=== PATIENT | female | born 1950 | race Caucasian/White ===

== ENCOUNTER 2016-04-20 15:45 | Outpatient (CLI) | payer MEDICARE | END 2016-04-20 15:46 | disposition home or self-care (01) | LOC: HPCALD 15:45 | PROVIDERS: ATTEND Family Medicine | DX: N39.0 Urinary tract infection, site not specified (principal) | CPT/HCPCS: 87086 ==

== ENCOUNTER 2016-11-23 16:38 | Outpatient (CLI) | payer MEDICARE ==
[2016-11-23 16:58] LABS: #Basophils 0.1 thou/uL (0.0-0.2); #Eosinphils 0.2 thou/uL (0.0-0.7); #Lymphocytes 3.5 thou/uL (1.20-3.40); #Monocytes 0.8 thou/uL (0.11-0.59); #Neutrophils 8.3 thou/uL (1.40-6.50); %Basophils 0.5 % (0.0-1.0); %Eosinophils 1.3 % (0.0-10.0); %Lymphocytes 27.5 % (21.0-51.0); %Monocytes 6.1 % (0.0-10.0); %Neutrophils 64.6 % (42.0-75.0); Hemoglobin 15.8 g/dL (12.0-16.0); Mean Corpuscular HGB CONC 32.6 g/dL (32.0-36.0); Mean Corpuscular Hemoglobin 31.1 pg (27.0-31.0); Mean Corpuscular Volume 95.2 fl (81.0-99.0); Mean Platelet Volume 7.7 fL (7.4-10.4); Platelet Count 317 thou/uL (130-400); RBC Distribution Width 13.1 % (11.5-14.5); Red Blood Cell (RBC) Count 5.07 mill/uL (4.20-5.40); White Blood Cell (WBC) Count 12.8 thou/uL (4.8-10.8)
[2016-11-23 17:06] LABS: Bacteria/HPF 4+ HPF (None Seen); RBC/HPF 0-3 HPF (0-3); Squamous Epithelial 0-3 HPF (0-3); WBC/HPF 0-3 HPF (0-3)
[2016-11-23 17:15] LABS: ALT (SGPT) 14 U/L (8-55); AST (SGOT) 14 U/L (5-34); Albumin 4.5 g/dL (3.4-4.8); Alkaline Phosphatase 131 U/L (40-150); Anion Gap 16 mmol/L (10-20); BUN (Urea Nitrogen) 13 mg/dL (9.8-20.1); Bilirubin, Total 0.6 mg/dL (0.2-1.2); Calc. Creatinine Clearance 0 mL/min (70-130); Calcium 10.5 mg/dL (7.8-10.44); Carbon Dioxide 28 mmol/L (23-31); Chloride 101 mmol/L (98-107); Estimated GFR-MDRD 59; Globulin 3.2 g/dL (2.4-3.5); Glucose 94 mg/dL (80-115); Potassium 3.9 mmol/L (3.5-5.1); Protein, Total 7.7 g/dL (6.0-8.3); Sodium 141 mmol/L (136-145)
== END 2016-11-23 16:39 | disposition home or self-care (01) ==
LOC: HPCALD 16:38
PROVIDERS: ATTEND Family Medicine
DX: R30.0 Dysuria (principal); I10 Essential (primary) hypertension
CPT/HCPCS: 36415; 80053; 81015; 84443; 85025; 87077; 87086; 87186

== ENCOUNTER 2016-12-17 22:30 | Emergency (ER) | payer MEDICARE ==
[2016-12-17] MEDS ORDERED: hydrOXYzine 25 MG TAB ONE (22:50)
[2016-12-17] MEDS ORDERED: predniSONE 20 MG TAB ONE (22:59)
== END 2016-12-17 23:02 | disposition home or self-care (01) ==
LOC: BURERS 22:30
DX: L25.9 Unspecified contact dermatitis, unspecified cause (principal); I10 Essential (primary) hypertension; F17.210 Nicotine dependence, cigarettes, uncomplicated; Z79.899 Other long term (current) drug therapy
CPT/HCPCS: 99282; J7506

== ENCOUNTER 2017-01-01 10:50 | Inpatient (IN) | payer MEDICARE ==
[2017-01-01 11:32] LABS: Bilirubin Negative (Negative); Blood, Urine Moderate (Negative); Clarity Slightly Cloudy (Clear); Glucose, Urine (Dipstick) Negative (Negative); Leukocyte Moderate (Negative); Nitrite Negative (Negative); Protein, Urine (Dipstick) Negative (Neg-Trace); Specific Gravity, Urine 1.015 (1.005-1.030); Urobilinogen 0.2 mg/dL (0.2-1.0)
[2017-01-01 11:46] LABS: Bacteria/HPF 1+ HPF (None Seen); Crystals/HPF None Seen HPF (Negative); Hyaline Casts/LPF NONE SEEN LPF (0-3 Hyaline); Other Casts/LPF None Seen LPF (0-3 Hyaline); Oval Fat Bodies/HPF None Seen HPF (None Seen); Renal Epithelial None Seen HPF (0-3); Sperm/HPF None Seen HPF (None Seen); Transitional Epithelial NONE SEEN HPF (0-3); Trichomonas/HPF None Seen HPF (None Seen); Yeast-All Forms None Seen HPF (None Seen)
[2017-01-01] MEDS ORDERED: Ampicillin/Sulbactam 1.5 GM VIAL ONE (12:24)
[2017-01-01 12:26] LABS: #Basophils 0.1 thou/uL (0.0-0.2); #Eosinphils 0.2 thou/uL (0.0-0.7); #Lymphocytes 3.1 thou/uL (1.20-3.40); #Monocytes 0.8 thou/uL (0.11-0.59); #Neutrophils 10.1 thou/uL (1.40-6.50); %Basophils 0.7 % (0.0-1.0); %Eosinophils 1.3 % (0.0-10.0); %Lymphocytes 21.6 % (21.0-51.0); %Monocytes 5.4 % (0.0-10.0); Mean Corpuscular HGB CONC 32.3 g/dL (32.0-36.0); Mean Corpuscular Hemoglobin 31.3 pg (27.0-31.0); Mean Platelet Volume 7.5 fL (7.4-10.4); Platelet Count 327 thou/uL (130-400); RBC Distribution Width 12.3 % (11.5-14.5); White Blood Cell (WBC) Count 14.3 thou/uL (4.8-10.8)
[2017-01-01 12:44] LABS: ALT (SGPT) 16 U/L (8-55); AST (SGOT) 17 U/L (5-34); Albumin 4.5 g/dL (3.4-4.8); Alkaline Phosphatase 119 U/L (40-150); Anion Gap 17 mmol/L (10-20); BUN (Urea Nitrogen) 13 mg/dL (9.8-20.1); Bilirubin, Total 0.5 mg/dL (0.2-1.2); Calc. Creatinine Clearance 0 mL/min (70-130); Calcium 11.1 mg/dL (7.8-10.44); Carbon Dioxide 26 mmol/L (23-31); Chloride 100 mmol/L (98-107); Estimated GFR-MDRD 70; Globulin 3.8 g/dL (2.4-3.5); Glucose 100 mg/dL (80-115); Potassium 3.6 mmol/L (3.5-5.1); Protein, Total 8.3 g/dL (6.0-8.3); Sodium 139 mmol/L (136-145)
[2017-01-01 15:01] VITALS: BMI 27.8
[2017-01-01] MEDS ORDERED: Ondansetron ODT 4 MG TAB SL PRN (15:11)
[2017-01-01] MEDS ORDERED: HYDROcodone/Acetaminophen 5/325 mg Tablet PO PRN ×2 (15:11→15:15)
[2017-01-01] MEDS ORDERED: Acetaminophen 325 MG TAB PO PRN (15:11)
[2017-01-01] MEDS ORDERED: Ondansetron HCl/PF 4 MG/2 ML Vial IVP PRN (15:11)
[2017-01-01] MEDS ORDERED: Ondansetron ODT 4 MG TAB PO PRN (15:15)
[2017-01-01] MEDS ORDERED: diphenhydrAMINE 12.5 MG/5 ML UDCUP PO PRN ×2 (15:18→23:30)
[2017-01-01] MEDS ORDERED: predniSONE 20 MG TAB PO SCH (15:30)
[2017-01-01] MEDS ORDERED: diphenhydrAMINE 12.5 MG/5 ML UDCUP PO SCH (15:30)
[2017-01-01] MEDS ORDERED: FLU VACC TS2017-18 (>65YR) 0.5 ML SYRINGE IM ONE (16:15)
[2017-01-01] MEDS ORDERED: diphenhydrAMINE 12.5 MG/5 ML UDCUP ONE ×2 (16:51→16:54)
[2017-01-01] MEDS: Ampicillin/Sulbactam 3 GM in Sodium Chloride 0.9% 100 ML IVPB SCH (16:57)
--- NOTE | 2017-01-01 19:54 | HP ---
DATE OF ADMISSION: 01/01/2017 CHIEF COMPLAINT: Pyelonephritis. HISTORY OF PRESENT ILLNESS: This is a 66-year-old female who initially had flank pain approximately 5 days ago for which she was seen at [facility] Emergency Department. She was concerned this may be kidney stone which she has had previously and her urologist, Dr. Santiago Singh, works with [facility]; accompanying symptoms included fever, chills, nausea, vomiting. At [facility], a CT scan effectively ruled out kidney stones; however, the patient was noted to have urinary tract infection. Cultures were obtained and she was discharged with a prescription for Keflex. The patient was called on Monday, a couple days ago to change the antibiotics to Macrobid as the culture from [facility] grew E. coli with an abundance of resistance to antibiotics; however, did show that Macrobid was appropriate. However, after the patient took 2 doses of the Macrobid, she began to have hives around her face and neck yesterday. The patient recalled receiving a prescription for Macrobid approximately a month ago for which a similar reaction took place; however, after having taken the Macrobid nearly in full. She reports to have taken Macrobid a couple of times in the past without a similar reaction. Regardless she presented to [facility] secondary to these findings and having been advised that if she did not tolerate the prescribed antibiotics of Macrobid and/or did not improve symptomatically that she will require IV antibiotic treatment. In the emergency department here, urinalysis was consistent with continued urinary tract infection and the patient has a white blood cell count of 14.3. Thus, it has been decided to admit the patient, her IV antibiotic therapy, Unasyn, was started based on her urine culture from the [facility] facility. Prior to initiating this antibiotic, a new urine culture was obtained. PAST MEDICAL HISTORY: Hypertension, kidney stones, and arthritis. PAST SURGICAL HISTORY: Kidney stones removed in 2009, cataract surgery, partial colectomy for diverticulitis in 1995, right partial lobectomy for lung cancer in 1996, total splenectomy, and ruptured spleen in 1996. SOCIAL HISTORY: The patient is a smoker. ALLERGIES: SULFA, CEFDINIR, and we presumed MACROBID at this point. FAMILY HISTORY: Noncontributory. CURRENT MEDICATIONS: Include cholecalciferol 1000 units p.o. daily, lisinopril 40 mg p.o. daily, amlodipine 5 mg p.o. daily, hydrochlorothiazide 25 mg p.o. daily, allopurinol 300 mg p.o. daily. REVIEW OF SYSTEMS: GENERAL: The patient denies fever. EAR, NOSE, AND THROAT: Denies sore throat, nasal drainage or congestion. CARDIOVASCULAR: Denies chest pain or palpitations. RESPIRATORY: Denies shortness of breath or cough. GASTROINTESTINAL: Denies abdominal pain, nausea, vomiting, diarrhea or constipation. GENITOURINARY: Reports dysuria. MUSCULOSKELETAL: Denies joint swelling. DERMATOLOGIC: Complains of rash. NEUROLOGIC: Denies headache. LABORATORY DATA: White blood cell count is 14.3 with a slight left shift. Chemistry is within normal limits other than a calcium level of 11.1. Urine shows moderate blood and leukocyte esterase with 1+ bacteria. PHYSICAL EXAMINATION: VITAL SIGNS: Temperature is 98.4, pulse is 83, respiratory rate is 16, oxygen is 95% on room air, and blood pressure is 160/74. GENERAL: The patient is well nourished in no acute distress. Alert and oriented. HEAD, EYES, EARS, NOSE, AND THROAT: Pupils are equal, round, and reactive to light. Extraocular muscles are intact bilaterally. Normocephalic and atraumatic. Moist mucous membranes within normal limits. NECK: Supple, with no lymphadenopathy. CARDIOVASCULAR: Regular rate and rhythm, normal S1, S2 with no murmurs, rubs or gallops. RESPIRATORY: Clear to auscultation bilaterally without wheezes, rales or rhonchi. GASTROINTESTINAL: Soft, nontender to palpation with normal bowel sounds. EXTREMITIES: No clubbing, cyanosis or edema. SKIN: Urticarial rash around her face and neck. NEUROLOGICAL: Nonfocal. Cranial nerves II-XII are grossly intact. ASSESSMENT AND PLAN: 1. Pyelonephritis. We will proceed with Unasyn per the patient's urinary culture from [facility]. We will follow up the urine cultures obtained in the ER here. As stated, we will presume the patient to be allergic to Macrobid at this time. I have encouraged the patient to hydrate well. She does appear to be euvolemic per exam. 2. History of kidney stones. The patient is apparently on allopurinol for this and thus will be continued. She is followed by Dr. Santiago Singh, Urology at [facility]. 3. Hypertension. She is hemodynamically stable. We will continue her home blood pressure medications as usual. 4. Vitamin D deficiency. We will continue the patient's cholecalciferol. 5. Hives. We will add Benadryl and prednisone for the patient to help clear her rash. 5. Prophylaxis. We will provide famotidine and Lovenox. [facility]
[2017-01-01] MEDS: TROSPIUM 20 MG TABLET PO SCH (20:33)
[2017-01-01] MEDS: Lisinopril 20 MG TAB PO SCH (20:34)
[2017-01-01] MEDS: Famotidine 20 MG TAB PO SCH (20:34)
[2017-01-01] MEDS ORDERED: Enoxaparin Sodium 30 MG/0.3 ML SYRINGE SC SCH (21:00)
[2017-01-02] MEDS: Ampicillin/Sulbactam 3 GM in Sodium Chloride 0.9% 100 ML IVPB SCH ×5 (00:25→23:49)
[2017-01-02 06:07] LABS: Anion Gap 14 mmol/L (10-20); BUN (Urea Nitrogen) 14 mg/dL (9.8-20.1); Calc. Creatinine Clearance 91 mL/min (70-130); Calcium 10.1 mg/dL (7.8-10.44); Carbon Dioxide 23 mmol/L (23-31); Chloride 107 mmol/L (98-107); Estimated GFR-MDRD 83; Glucose 134 mg/dL (80-115); Potassium 4.2 mmol/L (3.5-5.1); Sodium 140 mmol/L (136-145)
[2017-01-02 06:16] LABS: Band 9 % (5-11); Hemoglobin 14.4 g/dL (12.0-16.0); Lymphocytes 17 % (21-51); MDiff Complete? YES; Mean Corpuscular HGB CONC 33.4 g/dL (32.0-36.0); Mean Corpuscular Hemoglobin 31.9 pg (27.0-31.0); Mean Corpuscular Volume 95.4 fl (81.0-99.0); Mean Platelet Volume 6.9 fL (7.4-10.4); Monocytes 4 % (0-10); Neutrophil 70 % (42-75); PLT Morphology Comment Appears Adequate; Platelet Count 299 thou/uL (130-400); RBC Distribution Width 12.3 % (11.5-14.5); RBC Morphology Normal; Red Blood Cell (RBC) Count 4.53 mill/uL (4.20-5.40); Small Platelets SLIGHT; White Blood Cell (WBC) Count 10.2 thou/uL (4.8-10.8)
[2017-01-02] MEDS ORDERED: Enoxaparin Sodium 30 MG/0.3 ML SYRINGE SC SCH (07:57)
[2017-01-02] MEDS: Amlodipine 5 MG TAB PO SCH (08:28)
[2017-01-02] MEDS: Famotidine 20 MG TAB PO SCH ×2 (08:30→21:40)
[2017-01-02] MEDS: Hydrochlorothiazide 25 MG TAB PO SCH (08:30)
[2017-01-02] MEDS: TROSPIUM 20 MG TABLET PO SCH ×2 (08:32→21:39)
[2017-01-02] MEDS ORDERED: Allopurinol 100 MG TAB PO SCH (09:00)
[2017-01-02] MEDS: Lisinopril 20 MG TAB PO SCH (21:39)
[2017-01-02] MEDS: Enoxaparin Sodium 40 MG/0.4 ML SYRINGE SC SCH (21:40)
[2017-01-02] MEDS: Allopurinol 100 MG TAB PO SCH (21:40)
[2017-01-03] MEDS ORDERED: diphenhydrAMINE 12.5 MG/5 ML UDCUP ONE ×2 (02:02→02:05)
[2017-01-03] MEDS: Ampicillin/Sulbactam 3 GM in Sodium Chloride 0.9% 100 ML IVPB SCH ×4 (05:56→23:59)
[2017-01-03 06:08] LABS: White Blood Cell (WBC) Count 13.1 thou/uL (4.8-10.8)
[2017-01-03 06:09] LABS: %Lymphocytes 38.8 % (21.0-51.0); %Neutrophils 52.5 % (42.0-75.0); Hemoglobin 14.2 g/dL (12.0-16.0); Manual Diff?? NO; Mean Corpuscular HGB CONC 32.3 g/dL (32.0-36.0); Mean Corpuscular Hemoglobin 31.1 pg (27.0-31.0); Mean Corpuscular Volume 96.3 fL (81.0-99.0); Mean Platelet Volume 7.9 fL (7.4-10.4); Platelet Count 269 thou/uL (130-400); RBC Distribution Width 12.2 % (11.5-14.5); Red Blood Cell (RBC) Count 4.55 mill/uL (4.20-5.40)
[2017-01-03 06:10] LABS: #Basophils 0.1 thou/uL (0.0-0.2); #Eosinphils 0.3 thou/uL (0.0-0.7); #Lymphocytes 5.1 thou/uL (1.20-3.40); #Monocytes 0.7 thou/uL (0.11-0.59); #Neutrophils 6.9 thou/uL (1.40-6.50); %Basophils 1.1 % (0.0-1.0); %Eosinophils 2.3 % (0.0-10.0); %Monocytes 5.3 % (0.0-10.0)
[2017-01-03 06:12] LABS: Carbon Dioxide 22 mmol/L (23-31); Chloride 106 mmol/L (98-107); Potassium 3.8 mmol/L (3.5-5.1); Sodium 140 mmol/L (136-145)
[2017-01-03 06:14] LABS: Anion Gap 16 mmol/L (10-20); BUN (Urea Nitrogen) 12 mg/dL (9.8-20.1); Calc. Creatinine Clearance 86 mL/min (70-130); Calcium 9.5 mg/dL (7.8-10.44); Estimated GFR-MDRD 78; Glucose 102 mg/dL (80-115)
[2017-01-03] MEDS: Hydrochlorothiazide 25 MG TAB PO SCH (09:29)
[2017-01-03] MEDS: Famotidine 20 MG TAB PO SCH ×2 (09:29→20:52)
[2017-01-03] MEDS: TROSPIUM 20 MG TABLET PO SCH ×2 (09:29→20:52)
[2017-01-03] MEDS: Amlodipine 5 MG TAB PO SCH (09:30)
[2017-01-03] MEDS: Lisinopril 20 MG TAB PO SCH (20:52)
[2017-01-03] MEDS: Allopurinol 100 MG TAB PO SCH (20:52)
[2017-01-03] MEDS: Enoxaparin Sodium 40 MG/0.4 ML SYRINGE SC SCH (20:53)
[2017-01-04] MEDS: Ampicillin/Sulbactam 3 GM in Sodium Chloride 0.9% 100 ML IVPB SCH ×2 (05:33→12:25)
[2017-01-04 06:20] LABS: Anion Gap 15 mmol/L (10-20); BUN (Urea Nitrogen) 10 mg/dL (9.8-20.1); Calc. Creatinine Clearance 95 mL/min (70-130); Calcium 9.5 mg/dL (7.8-10.44); Carbon Dioxide 22 mmol/L (23-31); Chloride 105 mmol/L (98-107); Estimated GFR-MDRD 88; Glucose 86 mg/dL (80-115); Potassium 3.6 mmol/L (3.5-5.1); Sodium 138 mmol/L (136-145)
[2017-01-04 06:21] LABS: #Basophils 0.1 thou/uL (0.0-0.2); #Eosinphils 0.3 thou/uL (0.0-0.7); #Lymphocytes 3.9 thou/uL (1.20-3.40); #Monocytes 0.6 thou/uL (0.11-0.59); #Neutrophils 5.8 thou/uL (1.40-6.50); %Basophils 1.3 % (0.0-1.0); %Eosinophils 3.1 % (0.0-10.0); %Lymphocytes 35.8 % (21.0-51.0); %Monocytes 5.8 % (0.0-10.0); %Neutrophils 54.1 % (42.0-75.0); Hemoglobin 13.4 g/dL (12.0-16.0); Mean Corpuscular HGB CONC 32.5 g/dL (32.0-36.0); Mean Corpuscular Hemoglobin 31.6 pg (27.0-31.0); Mean Corpuscular Volume 97.2 fl (81.0-99.0); Mean Platelet Volume 6.8 fL (7.4-10.4); Platelet Count 304 thou/uL (130-400); RBC Distribution Width 12.5 % (11.5-14.5); Red Blood Cell (RBC) Count 4.25 mill/uL (4.20-5.40); White Blood Cell (WBC) Count 10.8 thou/uL (4.8-10.8)
[2017-01-04 06:39] VITALS: BP 135/66; TEMP 98.3
--- NOTE | 2017-01-04 08:11 | DIS ---
DATE OF ADMISSION: 01/01/2017 DATE OF TRANSFER: 01/04/2017 ADMISSION DIAGNOSES: 1. Pyelonephritis. 2. Drug reaction. 3. Leukocytosis. DISCHARGE DIAGNOSES: 1. Pyelonephritis. 2. Drug reaction. 3. Leukocytosis. ATTENDING PHYSICIAN: Dr. Magalys Milner with Dr. Adam Ashford admitting physician with Magalys chavez assuming care on 01/02/2017. PROCEDURES: Urine culture performed from the date of admission grew out E. coli sensitive to amikac in, amp/sulbactam, gentamicin, meropenem, Zosyn, tobramycin and resistant to all other agents. CBC on the day of admission with white count of 14.3 which was reduced to 10.8 on the day of transfer. Chemistry profile was unremarkable. HISTORY AND PHYSICAL EXAMINATION: Please see dictated report from admitting physician from the date of admission. HOSPITAL COURSE: Ms. Saucedo is a 66-year-old female patient who was treated in the [facility] setting for a urinary tract infection. She subsequently developed a rash consisting of hives to the neck and face region and knew that she could no longer take the oral antibiotics that were p rescribed, Macrobid. Therefore, she presented to the emergency room for further evaluation. She wa s admitted and placed on Unasyn. For the drug reaction, she was placed on prednisone and diphenhydr amine. The rash improved throughout her hospital stay. Her urinalysis and culture were repeated up on admission which grew out essentially the same organism as per the ambulatory setting originally p erformed at [facility]. The patient will be treated for a full course of at least 7 d ays. We will repeat her urine cultures 2 days prior to her discontinuation to make sure her urine i s clear prior to discharge. Transferring today to swing bed to continue IV antibiotic therapy. Thr oughout her hospital stay, she has been asymptomatic without nausea, vomiting, diarrhea, abdominal p ain, or dysuria. DISPOSITION: Transfer to swing bed. CONDITION: Good. MEDICATIONS: 1. Allopurinol 300 mg p.o. daily. 2. Amlodipine 5 mg p.o. daily. 3. Unasyn 3 grams IV q.6h. 4. Vitamin D3 1000 units p.o. daily. 5. Lovenox 40 mg subcu daily. 6. Pepcid 20 mg p.o. b.i.d. 7. Hydrochlorothiazide 25 mg p.o. daily. 8. Lisinopril 40 mg p.o. daily. 9. Trospium 20 mg p.o. b.i.d. 10. Tylenol 650 mg q.4h. p.r.n. fever or mild pain. 11. Benadryl 25 mg p.o. q.8h. p.r.n. 12. Railroad 5/325 one p.o. q.6h. p.r.n. pain. 13. Zofran 4 mg IV q.6h. p.r.n. nausea. 14. Zofran 4 mg p.o. q.8h. p.r.n. nausea. 15. Sodium flushes p.r.n. for peripheral line care. DISPOSITION: Discharge per swing bed to follow up with primary care physician, myself, in [facility] 7 days after swing bed discharge.
[2017-01-04] MEDS: Amlodipine 5 MG TAB PO SCH (08:39)
[2017-01-04] MEDS: TROSPIUM 20 MG TABLET PO SCH (08:39)
[2017-01-04] MEDS: Famotidine 20 MG TAB PO SCH (08:39)
[2017-01-04] MEDS: Hydrochlorothiazide 25 MG TAB PO SCH (08:41)
== END 2017-01-04 14:54 | disposition swing bed (61) | DRG 690 ==
LOC: BURERS 10:50 → BURMED 13:09
PROVIDERS: ADMIT Family Medicine; ATTEND Family Medicine
DX: N10 Acute pyelonephritis (principal); I10 Essential (primary) hypertension; B96.20 Unspecified Escherichia coli [E. coli] as the cause of diseases classified elsewhere; L50.9 Urticaria, unspecified; T37.8X5A Adverse effect of other specified systemic anti-infectives and antiparasitics, initial encounter; E55.9 Vitamin D deficiency, unspecified; Z87.442 Personal history of urinary calculi; D72.829 Elevated white blood cell count, unspecified
CPT/HCPCS: 36415; 80048; 80053; 81003; 81015; 85025; 87077; 87086; 87186; 96365; A4216; J0295; J1650; J7050; J7506

== ENCOUNTER 2017-01-04 10:43 | Inpatient (IN) | payer MEDICARE ==
[2017-01-04] MEDS ORDERED: Acetaminophen 325 MG TAB PO PRN (15:50)
[2017-01-04] MEDS ORDERED: diphenhydrAMINE 25 MG CAP PO PRN (16:01)
[2017-01-04] MEDS ORDERED: HYDROcodone/Acetaminophen 5/325 mg Tablet PO PRN (16:01)
[2017-01-04] MEDS ORDERED: Ondansetron HCl/PF 4 MG/2 ML Vial IVP PRN (16:13)
[2017-01-04] MEDS ORDERED: Ondansetron ODT 4 MG TAB PO PRN (16:13)
[2017-01-04 17:50] VITALS: BMI 28.3
[2017-01-04] MEDS: Ampicillin/Sulbactam 3 GM in Sodium Chloride 0.9% 100 ML IVPB SCH ×2 (18:26→23:47)
[2017-01-04] MEDS: TROSPIUM 20 MG TABLET PO SCH (20:28)
[2017-01-04] MEDS: Lisinopril 20 MG TAB PO SCH (20:29)
[2017-01-04] MEDS: Allopurinol 100 MG TAB PO SCH (20:31)
[2017-01-04] MEDS: Famotidine 20 MG TAB PO SCH (20:31)
[2017-01-04] MEDS: Enoxaparin Sodium 40 MG/0.4 ML SYRINGE SC SCH (20:34)
[2017-01-05] MEDS: Ampicillin/Sulbactam 3 GM in Sodium Chloride 0.9% 100 ML IVPB SCH ×3 (05:42→18:31)
[2017-01-05] MEDS: Amlodipine 5 MG TAB PO SCH (09:00)
[2017-01-05] MEDS: TROSPIUM 20 MG TABLET PO SCH ×2 (09:01→20:33)
[2017-01-05] MEDS: Famotidine 20 MG TAB PO SCH ×2 (09:01→20:30)
[2017-01-05] MEDS: Hydrochlorothiazide 25 MG TAB PO SCH (09:01)
[2017-01-05] MEDS: Lisinopril 20 MG TAB PO SCH (20:33)
[2017-01-05] MEDS: Allopurinol 100 MG TAB PO SCH (20:34)
[2017-01-05] MEDS: Enoxaparin Sodium 40 MG/0.4 ML SYRINGE SC SCH (20:34)
[2017-01-05] MEDS ORDERED: FLU VACC TS2017-18 (>65YR) 0.5 ML SYRINGE IM ONE (21:00)
[2017-01-06] MEDS: Ampicillin/Sulbactam 3 GM in Sodium Chloride 0.9% 100 ML IVPB SCH ×4 (00:11→18:25)
[2017-01-06] MEDS: TROSPIUM 20 MG TABLET PO SCH ×2 (08:30→21:04)
[2017-01-06] MEDS: Amlodipine 5 MG TAB PO SCH (08:31)
[2017-01-06] MEDS: Famotidine 20 MG TAB PO SCH ×2 (08:33→21:04)
[2017-01-06] MEDS: Hydrochlorothiazide 25 MG TAB PO SCH (08:33)
[2017-01-06] MEDS: Enoxaparin Sodium 40 MG/0.4 ML SYRINGE SC SCH (21:03)
[2017-01-06] MEDS: Allopurinol 100 MG TAB PO SCH (21:04)
[2017-01-06] MEDS: Lisinopril 20 MG TAB PO SCH (21:04)
[2017-01-07] MEDS: Ampicillin/Sulbactam 3 GM in Sodium Chloride 0.9% 100 ML IVPB SCH ×5 (01:14→23:46)
[2017-01-07] MEDS: TROSPIUM 20 MG TABLET PO SCH ×2 (09:09→21:17)
[2017-01-07] MEDS: Amlodipine 5 MG TAB PO SCH (09:09)
[2017-01-07] MEDS: Famotidine 20 MG TAB PO SCH ×2 (09:10→21:17)
[2017-01-07] MEDS: Hydrochlorothiazide 25 MG TAB PO SCH (09:10)
[2017-01-07] MEDS: Allopurinol 100 MG TAB PO SCH (21:17)
[2017-01-07] MEDS: Lisinopril 20 MG TAB PO SCH (21:18)
[2017-01-07] MEDS: Enoxaparin Sodium 40 MG/0.4 ML SYRINGE SC SCH (21:21)
[2017-01-08] MEDS: Ampicillin/Sulbactam 3 GM in Sodium Chloride 0.9% 100 ML IVPB SCH ×4 (06:00→23:39)
[2017-01-08] MEDS: Amlodipine 5 MG TAB PO SCH (08:08)
[2017-01-08] MEDS: Hydrochlorothiazide 25 MG TAB PO SCH (08:11)
[2017-01-08] MEDS: Famotidine 20 MG TAB PO SCH ×2 (08:11→21:18)
[2017-01-08] MEDS: TROSPIUM 20 MG TABLET PO SCH ×2 (08:11→21:17)
[2017-01-08] MEDS: Allopurinol 100 MG TAB PO SCH (21:18)
[2017-01-08] MEDS: Lisinopril 20 MG TAB PO SCH (21:18)
[2017-01-08] MEDS: Enoxaparin Sodium 40 MG/0.4 ML SYRINGE SC SCH (21:19)
[2017-01-09] MEDS: Ampicillin/Sulbactam 3 GM in Sodium Chloride 0.9% 100 ML IVPB SCH (05:35)
[2017-01-09 06:16] VITALS: BP 117/76; TEMP 98.2
[2017-01-09] MEDS: TROSPIUM 20 MG TABLET PO SCH (08:09)
[2017-01-09] MEDS: Hydrochlorothiazide 25 MG TAB PO SCH (08:09)
[2017-01-09] MEDS: Famotidine 20 MG TAB PO SCH (08:09)
[2017-01-09] MEDS: Amlodipine 5 MG TAB PO SCH (08:09)
== END 2017-01-09 09:15 | disposition home or self-care (01) | DRG 690 ==
LOC: BURMED 14:59
PROVIDERS: ADMIT Family Medicine; ATTEND Family Medicine
DX: N12 Tubulo-interstitial nephritis, not specified as acute or chronic (principal); I10 Essential (primary) hypertension; E55.9 Vitamin D deficiency, unspecified; L50.0 Allergic urticaria; F17.210 Nicotine dependence, cigarettes, uncomplicated; Z88.1 Allergy status to other antibiotic agents; Z88.2 Allergy status to sulfonamides; Z90.49 Acquired absence of other specified parts of digestive tract; Z90.2 Acquired absence of lung [part of]; Z87.442 Personal history of urinary calculi; Z87.19 Personal history of other diseases of the digestive system; Z85.118 Personal history of other malignant neoplasm of bronchus and lung; T37.8X5A Adverse effect of other specified systemic anti-infectives and antiparasitics, initial encounter
CPT/HCPCS: 87086; A4216; J0295; J1650; J7050

== ENCOUNTER 2017-01-31 04:53 | Emergency (ER) | payer MEDICARE ==
[2017-01-31 05:20] LABS: Bilirubin Negative (Negative); Blood, Urine Moderate (Negative); Clarity Cloudy (Clear); Glucose, Urine (Dipstick) Negative (Negative); Leukocyte Moderate (Negative); Nitrite Positive (Negative); Protein, Urine (Dipstick) 30 mg/dL (Neg-Trace); Urobilinogen 0.2 mg/dL (0.2-1.0)
[2017-01-31 05:24] LABS: Bacteria/HPF 3+ HPF (None Seen); Crystals/HPF 1+ CA OXALATE HPF (Negative); Squamous Epithelial 0-3 HPF (0-3); WBC/HPF 21-50 HPF (0-3)
[2017-01-31] MEDS ORDERED: Promethazine HCl 25 MG/ML VIAL ONE (05:35)
[2017-01-31] MEDS ORDERED: Ketorolac Tromethamine 30 MG/ML VIAL ONE (05:35)
[2017-01-31] MEDS ORDERED: Ampicillin/Sulbactam 1.5 GM VIAL ONE (05:43)
[2017-01-31 05:55] LABS: ALT (SGPT) 14 U/L (8-55); AST (SGOT) 12 U/L (5-34); Albumin 4.1 g/dL (3.4-4.8); Alkaline Phosphatase 126 U/L (40-150); Anion Gap 20 mmol/L (10-20); BUN (Urea Nitrogen) 14 mg/dL (9.8-20.1); Bilirubin, Total 0.6 mg/dL (0.2-1.2); Calc. Creatinine Clearance 0 mL/min (70-130); Calcium 10.1 mg/dL (7.8-10.44); Carbon Dioxide 18 mmol/L (23-31); Chloride 103 mmol/L (98-107); Estimated GFR-MDRD 50; Globulin 3.5 g/dL (2.4-3.5); Glucose 140 mg/dL (80-115); Protein, Total 7.6 g/dL (6.0-8.3); Sodium 137 mmol/L (136-145)
[2017-01-31 06:12] LABS: Hemoglobin 15.4 g/dL (12.0-16.0); Mean Corpuscular HGB CONC 34.2 g/dL (32.0-36.0); Mean Corpuscular Hemoglobin 32.2 pg (27.0-31.0); Mean Corpuscular Volume 94.3 fl (81.0-99.0); Mean Platelet Volume 7.4 fL (7.4-10.4); Platelet Count 320 thou/uL (130-400); RBC Distribution Width 12.3 % (11.5-14.5); Red Blood Cell (RBC) Count 4.79 mill/uL (4.20-5.40); White Blood Cell (WBC) Count 30.2 thou/uL (4.8-10.8)
[2017-01-31 06:17] LABS: Band 4 % (5-11); Lymphocytes 2 % (21-51); Monocytes 4 % (0-10); Neutrophil 90 % (42-75); PLT Morphology Comment Appears Adequate; RBC Morphology Normal
[2017-01-31 06:18] LABS: MDiff Complete? YES
--- NOTE | 2017-01-31 08:40 | CT ---
PRELIMINARY REPORT/[facility]/EMERGENCY AFTER HOURS PROCEDURE: EXAM: CT Abdomen and Pelvis Without Intravenous Contrast EXAM DATE/TIME: Exam ordered 01/31/2017 5:44 AM CLINICAL HISTORY: 66 years old, female; Pain; Abdominal pain TECHNIQUE: Axial computed tomography images of the abdomen and pelvis without intravenous contrast. All CT scans at this facility use one or more dose reduction techniques, viz.: automated exposure control; ma/kV adjustment per patient size (including targeted exams where dose is matched to indication; i.e. head) ; or iterative reconstruction technique. COMPARISON: No relevant prior studies available. FINDINGS: Lower thorax: There is a partially visualized 1.9 cm cystic lesion in the RIGHT breast. A small hiata l hernia is present. ABDOMEN: Liver: There are no focal liver lesions present. Gallbladder and bile ducts: Normal. No calcified stones. No ductal dilation. Pancreas: The pancreas is normal. No ductal dilation. Spleen: The spleen is normal. Adrenals: The adrenal glands are normal. The adrenal glands are normal. Kidneys and ureters: There is a 9 x 7 x 10 mm proximal RIGHT ureteral obstructing calculus with assoc iated moderate to severe RIGHT hydronephrosis and perinephric stranding. Stomach and bowel: The stomach is normal. The duodenum is unremarkable. The colon is normal. No obstruction. No mucosal thickening. Appendix: A normal appendix is identified. PELVIS: Bladder: The bladder is normal. No stones. Reproductive: There is a nonspecific 2.5 cm peripherally calcified lesion within the LEFT ovary. ABDOMEN and PELVIS: Intraperitoneal space: Normal. No free air. No significant fluid collection. Bones/joints: No acute fracture. No dislocation. Soft tissues: Normal. Vasculature: Normal. No abdominal aortic aneurysm. Lymph nodes: Normal. No enlarged lymph nodes. IMPRESSION: 1. There is a 9 x 7 x 10 mm proximal RIGHT ureteral obstructing calculus with associated moderate to severe RIGHT hydronephrosis and perinephric stranding. 2. There is a nonspecific 2.5 cm peripherally calcified lesion within the LEFT ovary. Nonemergent ult rasound evaluation is advised. 3. There is a partially visualized 1.9 cm cystic lesion in the RIGHT breast. Mammographic/ultrasound correlation is advised. Thank you for allowing us to participate in the care of your patient. Dictated and Authenticated by: Santiago Perez MD 01/31/2017 6:10 AM Central Time ([place] & [place]) FINAL REPORT CT ABDOMEN AND PELVIS WITHOUT CONTRAST: DATE: 01/31/17. FINDINGS: Comparison is made with a 08/04/15 study. Axial slices were acquired without oral or IV contrast. Cor onal reconstructions were then done. The patient presents with right flank pain. Lung bases are clear, except for some minor scarring or atelectasis in the left base. Dense breast t issue is seen bilaterally with several rounded masses in the right breast, the largest measuring 2.1 cm. This was seen before. These are probably multiple cysts, but ultrasound or other imaging would be needed to confirm it. A small hiatal hernia was seen. The liver, spleen, and pancreas are unremarkable. Some calcificatio n is seen in the aorta, but no aneurysm was detected. No stones were seen in the gallbladder. Bilateral renal calculi are present. The one in the right kidney has now moved to the right UPJ and measures 1 cm in size. It is causing moderate to severe right hydronephrosis, a new finding since last scan. The right adrenal gland appears normal. The left adrenal gland contains a mass which m easures 1.9 cm in size, comparable to the prior study. This noncontrast study shows the mean density value of the mass to be about 2.6 which is close to water density. This means it is highly likely t hat this is an adenoma. (The prior study was a contrast only.) The bowel is nondistended. There is no inflammatory change around bowel. Some diverticulosis withou t diverticulitis is noted. The appendix appears normal. There is no free air or free fluid. CT of the pelvis was remarkable for a 3.5 cm rim-calcified lesion of the left ovary. An ultrasound w as done to look at this after the last scan which showed it was a solid area and hypoechoic. It coul d not confirm it to be a cyst as no further workup has been done or not. There is marked bulging of the L5-S1 disk as before. IMPRESSION: 1. A 1 cm proximal right ureteral calculus at the right ureteropelvic junction causing moderate to s evere hydronephrosis, a new finding since the last scan. 2. Bilateral renal calculi. 3. A 1.9 cm left adrenal mass with low-density numbers on this noncontrast study suggestive of an ad enoma. 4. Several rounded masses in the visible portions of the right breast, mentioned previously. Cysts are most likely, but further imaging would be needed to prove this. 5. Small hiatal hernia. 6. A 3.5 cm rim-calcified mass of the left ovary, size unchanged since the prior study. Report in substantial agreement with preliminary reading by [facility]. POS: HOME
== END 2017-01-31 07:35 | disposition home or self-care (01) ==
LOC: BURERS 04:53
DX: N12 Tubulo-interstitial nephritis, not specified as acute or chronic (principal); N13.6 Pyonephrosis; R65.10 Systemic inflammatory response syndrome (SIRS) of non-infectious origin without acute organ dysfunction; D72.829 Elevated white blood cell count, unspecified; F17.210 Nicotine dependence, cigarettes, uncomplicated; I10 Essential (primary) hypertension; Z79.899 Other long term (current) drug therapy; Z85.118 Personal history of other malignant neoplasm of bronchus and lung
CPT/HCPCS: 36415; 74176; 80053; 81003; 81015; 85025; 87077; 87086; 87186; 96365; 96367; 96375; J0295; J1885; J2550

== ENCOUNTER 2019-11-15 18:44 | Emergency (ER) | payer MEDICARE ==
[2019-11-15] MEDS ORDERED: Ibuprofen 200 MG TAB ONE (19:26)
[2019-11-15] MEDS ORDERED: HYDROcodone/Acetaminophen 5/325 mg Tablet ONE (19:26)
--- NOTE | 2019-11-15 21:43 | CT ---
CT OF THE BRAIN WITHOUT CONTRAST: 11/15/19 No prior scans were available for comparison. The ventricles are normal in size with no shift. No intracranial bleeding, mass or edema was seen. Th ere was a little low density in the right temporal lobe in the middle cranial fossa on scan 6 only. T his may be artifact. At most it might be remote stroke. The visible paranasal sinuses are clear. Mastoid air cells are semiopaque so there may be chronic mas toiditis. IMPRESSION: 1. No definite acute findings. 2. Semiopaque mastoids. POS: HOME
--- NOTE | 2019-11-15 21:54 | RAD ---
LEFT HIP TWO VIEWS: 11/15/19 No fracture was seen. There is no dislocation of the femoral head. The joint space is normal in width . The adjacent pubic ring appears intact. IMPRESSION: No acute bony findings. POS: HOME
--- NOTE | 2019-11-15 21:56 | RAD ---
LEFT ELBOW FOUR VIEWS: 11/15/19 A displaced fracture of the olecranon is present. There are multiple fragments. A joint effusion is present as expected. The radial head appears intact. IMPRESSION: Displaced olecranon fracture. POS: HOME
== END 2019-11-15 23:25 | disposition home or self-care (01) ==
LOC: BURERS 18:44
DX: S52.022A Displaced fracture of olecranon process without intraarticular extension of left ulna, initial encounter for closed fracture (principal); I10 Essential (primary) hypertension; F17.210 Nicotine dependence, cigarettes, uncomplicated; Z79.82 Long term (current) use of aspirin; Z79.899 Other long term (current) drug therapy; W19.XXXA Unspecified fall, initial encounter
CPT/HCPCS: 24670; 70450; 96360

== ENCOUNTER 2019-12-30 01:33 | Emergency (ER) | payer MEDICARE ==
[2019-12-30] MEDS ORDERED: EPINEPHrine 1 MG/10 ML Abboject SYRINGE ONE (01:37)
[2019-12-30] MEDS ORDERED: Morphine 2 MG/ML SYRINGE ONE (01:49)
[2019-12-30] MEDS ORDERED: Morphine 4 MG/ML VIAL ONE (01:49)
[2019-12-30] MEDS ORDERED: EPINEPHrine 1 MG/ML AMP ONE (01:50)
[2019-12-30] MEDS ORDERED: methylPREDNISolone Sod Succ/PF 125 MG/2 ML VIAL ONE (02:00)
[2019-12-30] MEDS ORDERED: diphenhydrAMINE 50 MG/ML VIAL ONE (02:00)
[2019-12-30] MEDS ORDERED: Famotidine In NaCl 20 mg/50 ml Premix Bag ONE (02:00)
[2019-12-30] MEDS ORDERED: Ketamine 50 MG/ML (10ML VIAL) ONE (02:32)
[2019-12-30] MEDS ORDERED: Fentanyl 100 MCG/2 ML VIAL ONE ×2 (02:54→03:30)
[2019-12-30 03:36] LABS: #Basophils 0.1 thou/uL (0.0-0.2); #Eosinphils 0.3 thou/uL (0.0-0.7); #Monocytes 0.6 thou/uL (0.11-0.59); #Neutrophils 12.4 thou/uL (1.40-6.50); %Basophils 0.6 % (0.0-1.0); %Eosinophils 1.6 % (0.0-10.0); %Lymphocytes 18.4 % (21.0-51.0); %Monocytes 3.4 % (0.0-10.0); Hemoglobin 13.2 g/dL (12.0-16.0); Mean Corpuscular HGB CONC 31.6 g/dL (32.0-36.0); Mean Corpuscular Hemoglobin 31.7 pg (27.0-31.0); Mean Platelet Volume 7.9 fL (7.4-10.4); Platelet Count 251 thou/uL (130-400); RBC Distribution Width 13.4 % (11.5-14.5); Red Blood Cell (RBC) Count 4.17 mill/uL (4.20-5.40); White Blood Cell (WBC) Count 16.3 thou/uL (4.8-10.8)
[2019-12-30 03:49] LABS: Base Excess-Venous -1.5 mmol/L (-2.0 to 3.0); Bicarbonate (HCO3v) 23.9 mmol/L (22.0-28.0); CO2 Tension (PvCO2) 42.1 mmHg (40.0-50.0); Calcium, Ionized 1.15 mmol/L (1.15-1.33); Chloride 107 mmol/L (98-107); Hemoglobin - Calc 15.1 g/dL (12.0-16.0); Potassium 3.2 mmol/L (3.5-5.1); Sodium 143 mmol/L (138-145); T. Carbon Dioxide 25.2 mmol/L (22.0-28.0); vO2 Saturation-calc 99.6 % (60.0-85.0)
[2019-12-30 03:52] LABS: ALT (SGPT) 12 U/L (8-55); AST (SGOT) 15 U/L (5-34); Alkaline Phosphatase 92 U/L (40-110); Anion Gap 16 mmol/L (10-20); BUN (Urea Nitrogen) 13 mg/dL (9.8-20.1); Bilirubin, Total 0.4 mg/dL (0.2-1.2); Calc. Creatinine Clearance 0 mL/min (70-130); Calcium 9.3 mg/dL (7.8-10.44); Carbon Dioxide 21 mmol/L (23-31); Chloride 105 mmol/L (98-107); Estimated GFR-MDRD 66; Globulin 2.7 g/dL (2.4-3.5); Glucose 144 mg/dL (80-115); Potassium 3.1 mmol/L (3.5-5.1); Protein, Total 6.7 g/dL (6.0-8.3); Sodium 139 mmol/L (136-145)
--- NOTE | 2019-12-30 07:17 | RAD ---
PORTABLE CHEST: Date: 12/30/2019 An AP portable film at 0304 hours is compared with the 12/25/2014 study. The heart remains normal in size. There is slight prominence of the vasculature today compared to bef ore. An endotracheal tube has been placed. The tip seems to be a couple of centimeters above the lisseth na. I cannot tell if there might be a NG tube placed too, but this is more difficult to be certain of . If so, then its tip is only in the mid esophageal level. There is a line here that seems to be beyo nd the tip of the endotracheal tube that I presumed to be a separate tube. There are no effusions in the chest. IMPRESSION: 1. Endotracheal tube about 2.0 cm above the mahnaz. 2. If a NG tube is present, it is only in the mid esophageal region. 3. Slight vascular prominence. POS: HOME
[2019-12-30] MEDS ORDERED: Rocuronium Bromide 10 MG/ML (10ML VIAL) ONE (16:10)
== END 2019-12-30 03:38 | disposition short-term general hospital (02) ==
LOC: BURERS 01:33
DX: T78.40XA Allergy, unspecified, initial encounter (principal); R22.0 Localized swelling, mass and lump, head; I10 Essential (primary) hypertension; F17.210 Nicotine dependence, cigarettes, uncomplicated; Z79.899 Other long term (current) drug therapy; Z79.82 Long term (current) use of aspirin
CPT/HCPCS: 31500; 36415; 36680; 51702; 71045; 80053; 82330; 82803; 85025; 96365; 96366; 96368; 96372; 96375; 96376; 99292; J0171; J1200; J2270; J2930; J3010

== ENCOUNTER 2020-02-01 15:09 | Emergency (ER) | payer MEDICARE ==
[2020-02-01 15:51] LABS: Bilirubin Negative (Negative); Blood, Urine Trace (Negative); Clarity Slightly Cloudy (Clear); Glucose, Urine (Dipstick) Negative (Negative); Ketone, Urine Negative (Negative); Leukocyte Trace (Negative); Nitrite Negative (Negative); Protein, Urine (Dipstick) 30 mg/dL (Neg-Trace); Specific Gravity, Urine 1.015 (1.005-1.030); Urobilinogen 0.2 mg/dL (Less than 2)
[2020-02-01 15:57] LABS: Bacteria/HPF 1+ HPF (None Seen); RBC/HPF 0-3 HPF (0-3)
[2020-02-02 18:38] LABS: SARS-CoV-2 MS2 Positive; SARS-CoV-2 N Gene Negative; SARS-CoV-2 S Gene Negative; SARS-CoV-2 by NAA Not Detected (NotDetected); SARS-CoV-2 orf1ab Negative
== END 2020-02-01 16:17 | disposition home or self-care (01) ==
LOC: BURERS 15:09
DX: R50.9 Fever, unspecified (principal); R00.0 Tachycardia, unspecified; R53.81 Other malaise; Z20.828 Contact with and (suspected) exposure to other viral communicable diseases; I10 Essential (primary) hypertension; F17.210 Nicotine dependence, cigarettes, uncomplicated; Z87.442 Personal history of urinary calculi; Z85.118 Personal history of other malignant neoplasm of bronchus and lung; Z79.899 Other long term (current) drug therapy; Z79.82 Long term (current) use of aspirin
CPT/HCPCS: 87086; 87804 ×2; 99283; U0003; 81003; 81015; 87635

== ENCOUNTER 2020-02-03 12:20 | Outpatient (CLI) | payer MEDICARE ==
[2020-02-03 12:36] LABS: #Basophils 0.1 thou/uL (0.0-0.2); #Eosinphils 0.2 thou/uL (0.0-0.7); #Lymphocytes 1.5 thou/uL (1.20-3.40); #Monocytes 1.7 thou/uL (0.11-0.59); %Basophils 0.5 % (0.0-1.0); %Eosinophils 0.9 % (0.0-10.0); %Lymphocytes 8.4 % (21.0-51.0); %Monocytes 9.6 % (0.0-10.0); %Neutrophils 80.5 % (42.0-75.0); Hemoglobin 13.8 g/dL (12.0-16.0); Mean Corpuscular HGB CONC 33.7 g/dL (32.0-36.0); Mean Corpuscular Hemoglobin 31.9 pg (27.0-31.0); Mean Corpuscular Volume 94.8 fL (78.0-98.0); Mean Platelet Volume 8.1 fL (7.4-10.4); Platelet Count 256 thou/uL (130-400); Red Blood Cell (RBC) Count 4.31 mill/uL (4.20-5.40); White Blood Cell (WBC) Count 17.4 thou/uL (4.8-10.8)
[2020-02-03 12:53] LABS: ALT (SGPT) 22 U/L (8-55); AST (SGOT) 17 U/L (5-34); Albumin 3.8 g/dL (3.4-4.8); Alkaline Phosphatase 93 U/L (40-110); Anion Gap 14 mmol/L (10-20); BUN (Urea Nitrogen) 13 mg/dL (9.8-20.1); Bilirubin, Total 0.5 mg/dL (0.2-1.2); Calc. Creatinine Clearance 0 mL/min (70-130); Calcium 9.7 mg/dL (7.8-10.44); Carbon Dioxide 26 mmol/L (23-31); Chloride 100 mmol/L (98-107); Estimated GFR-MDRD 74; Globulin 3.2 g/dL (2.4-3.5); Glucose 123 mg/dL (80-115); Sodium 137 mmol/L (136-145)
[2020-02-03 13:12] LABS: Potassium 2.9 mmol/L (3.5-5.1)
--- NOTE | 2020-02-03 16:57 | RAD ---
CHEST TWO VIEWS: Date: 02-03-2020 Comparison: 12-31-2019 from [facility]. FINDINGS: The lungs are actually a bit clearer today than before. No focal infiltrate was appreciated. The hear t size is stable and there is no congestion or pulmonary edema. There is a little blunting of the rig ht costophrenic angle, so I cannot rule out a minimal effusion here. Clips are seen around the right hilum from a prior procedure. Calcification is present in the aortic arch. IMPRESSION: 1. No definite focal infiltrate. Lungs slightly clearer than previously. 2. Possible small right pleural effusion. POS: HOME
== END 2020-02-03 12:21 | disposition home or self-care (01) ==
LOC: BURRAD 12:20
PROVIDERS: ATTEND Family Medicine
DX: R05 Cough (principal)
CPT/HCPCS: 36415; 71046; 80053; 85025

== ENCOUNTER 2020-03-29 14:53 | Emergency (ER) | payer MEDICARE ==
[2020-03-29 15:20] LABS: Clarity Turbid (Clear); Specific Gravity, Urine 1.013 (1.002-1.036)
[2020-03-29 15:24] LABS: Leukocyte Trace (Negative)
[2020-03-29 15:25] LABS: Bilirubin Unable to Interpret (Negative); Blood, Urine Large (Negative); Glucose, Urine (Dipstick) Unable to Interpret mg/dL (Negative); Ketone, Urine Unable to Interpret mg/dL (Negative); Nitrite Unable to Interpret (Negative); Protein, Urine (Dipstick) Unable to Interpret mg/dL (Neg-Trace); Urobilinogen UNABLE TO INTERPRET mg/dL (Less than 2)
[2020-03-29 15:26] LABS: Bacteria/HPF 1+ HPF (None Seen); RBC/HPF Greater than 50 HPF (0-3); Squamous Epithelial 0-3 HPF (0-3); WBC/HPF 21-50 HPF (0-3)
[2020-03-29] MEDS ORDERED: Ciprofloxacin 500 MG TAB ONE (16:12)
== END 2020-03-29 16:17 | disposition home or self-care (01) ==
LOC: BURERS 14:53
DX: N39.0 Urinary tract infection, site not specified (principal); I10 Essential (primary) hypertension; F17.210 Nicotine dependence, cigarettes, uncomplicated
CPT/HCPCS: 81003; 81015; 87086; 99283

== ENCOUNTER 2021-07-13 17:14 | Emergency (ER) | payer MEDICARE ==
[2021-07-13 18:14] LABS: #Basophils 0.1 thou/uL (0.0-0.2); #Eosinphils 1.1 thou/uL (0.0-0.7); #Lymphocytes 2.4 thou/uL (1.20-3.40); %Basophils 0.5 % (0.0-1.0); %Eosinophils 5.9 % (0.0-10.0); %Lymphocytes 12.7 % (21.0-51.0); %Monocytes 10.8 % (0.0-10.0); Hemoglobin 14.1 g/dL (12.0-16.0); Mean Corpuscular HGB CONC 33.2 g/dL (32.0-36.0); Mean Corpuscular Hemoglobin 32.4 pg (27.0-31.0); Mean Corpuscular Volume 97.7 fL (78.0-98.0); Mean Platelet Volume 7.6 fL (7.4-10.4); Platelet Count 254 thou/uL (130-400); RBC Distribution Width 13.5 % (11.5-14.5); Red Blood Cell (RBC) Count 4.34 mill/uL (4.20-5.40); White Blood Cell (WBC) Count 18.5 thou/uL (4.8-10.8)
[2021-07-13 18:28] LABS: ALT (SGPT) 17 U/L (8-55); AST (SGOT) 18 U/L (5-34); Alkaline Phosphatase 90 U/L (40-110); Anion Gap 17 mmol/L (10-20); BUN (Urea Nitrogen) 13 mg/dL (9.8-20.1); Bilirubin, Total 0.4 mg/dL (0.2-1.2); Calc. Creatinine Clearance 0 mL/min (70-130); Calcium 9.3 mg/dL (7.8-10.44); Carbon Dioxide 26 mmol/L (23-31); Chloride 100 mmol/L (98-107); Globulin 2.8 g/dL (2.4-3.5); Glucose 96 mg/dL (83-110); Potassium 3.8 mmol/L (3.5-5.1); Protein, Total 6.8 g/dL (5.8-8.1); Sodium 139 mmol/L (136-145)
[2021-07-13] MEDS ORDERED: predniSONE 20 MG TAB ONE (19:13)
== END 2021-07-13 19:25 | disposition home or self-care (01) ==
LOC: BURERS 17:14
DX: J06.9 Acute upper respiratory infection, unspecified (principal); I10 Essential (primary) hypertension; E78.5 Hyperlipidemia, unspecified; E78.00 Pure hypercholesterolemia, unspecified; F17.210 Nicotine dependence, cigarettes, uncomplicated
CPT/HCPCS: 36415; 71045; 80053; 83880; 84484; 85025; 93005; J7512; J7620